=== PATIENT | male | born 1965 | race Caucasian/White ===

== ENCOUNTER 2016-11-11 05:01 | Emergency (ER) | payer OTHER ==
--- NOTE | 2016-11-14 20:08 | ER ---
ADMIT: 11/11/2016 RM/LOC: ER [facility] MR#: [id number] [id number] [address] [place] [address] Emergency Room Report SEX: M AGE: 51 : 1965 DATE: 11/11/2016 The patient is a 51-year-old male, who woke with right chest discomfort radiating to right arm associated with nausea, eructations. No shortness of breath, nausea, diaphoresis, exacerbating or relieving maneuvers. The patient admits to late supper and heartburn symptoms lately relieved with liquid antacids. Coronary risk factors remarkable only for premature heart disease in father. Exam remarkable for nontoxic, afebrile, slightly obese male, nontender to palpation. EKG; sinus rhythm without ST-T or Q-wave change. Chest x-ray, negative. Hemoglobin 13.8, lactic 1.1, lipase 196, troponin less than 0.015, D-dimer 0.19. Responded well to biliary cocktail, Zofran, Toradol, Protonix and relief with GI cocktail. Home with Protonix 40 mg at bedtime, nothing 4 hours before lying down. Liquid, antacids as needed. Follow up with Dr. Mayes this week. Shankar Martinez MD/ marcus JOB #: [id number] CC: Shankar Martinez MD, Attending Physician Amando Mayes MD, Family Physician Amando Mayes MD
== END 2016-11-11 06:15 | disposition home or self-care (01) ==
LOC: ER 05:01
DX: K21.9 Gastro-esophageal reflux disease without esophagitis (principal)